=== PATIENT | male | born 1970 | race Caucasian/White ===

== ENCOUNTER 2020-05-23 19:41 | Emergency (ER) | payer OTHER ==
[~2020-05-23] VITALS: Ht 172.7 cm; Wt 102.1 kg
[2020-05-23 20:07] VITALS: BP 159/91
[2020-05-23] MEDS ORDERED: FUL-GLO OP ONE (20:47)
[2020-05-23] MEDS ORDERED: TOBRAMYCIN-DEXAMETH OPHTH SUSP ONE (20:58)
[2020-05-23] MEDS: TOBREX BOTH EYES STA (21:01)
--- NOTE | 2020-05-23 21:02 | ER.PDOC ---
General Chief Complaint: Eye Problems Stated Complaint: SWOLLEN RIGHT EYE Time seen by MD: 20:59 Source: patient Exam Limitations: no limitations History of Present Illness Initial Comments Right eye pain and tearing since this morning. Patient wears contacts. No injury. Timing/Duration: gradual Associated Symptoms: burning, itching, redness Location: right eye Severity: moderate Context: wearing contacts Allergies: Coded Allergies: Penicillins (Verified Allergy, Severe, RASH, 05/23/20) Uncoded Allergies: SULFA (Allergy, Severe, RASH, 05/23/20) Past Medical History Medical History: high cholesterol, thyroid disease Surgical History: no surgical history Social History Alcohol Use: occassionally Drug Use: none Constitutional: no symptoms reported Eyes: see HPI Mouth: no symptoms reported Throat: no symptoms reported Respiratory: no symptoms reported Cardiovascular: no symptoms reported Gastrointestinal: no symptoms reported Musculoskeletal: no symptoms reported All Other Systems: Reviewed and Negative Physical Exam General Appearance: alert, no distress Eyelid: nml inspection Conjunctiva/Sclera: (R) injected Corneas: nml inspection, exam w/flurescein (R) EOM's: intact, no nystagmus Pupils: PERRL, nml accommodation Skin Exam: Normal Color, Warm/Dry Neck/Back: nml inspection, painless ROM Resp/CVS: no resp distress, lungs clear, heart sounds nml, reg. rate & rhythm Abdomen: non-tender, no organomegaly NEURO/PSYCH: oriented X3, mood/effect nml Results/Orders Results/Orders Orders - KIM HURST MD Fluorescein Sodium (Ful-Valentine) (05/23/20 20:47) Tobramycin (Tobrex) (05/23/20 20:57) Vital Signs Date Time Temp Pulse Resp B/P (MAP) Pulse Ox O2 Delivery O2 Flow Rate FiO2 05/23/20 20:07 97.9 76 16 98 05/23/20 20:07 97.9 76 16 05/23/20 20:07 97.9 76 16 159/91 (113) 98 Departure Time of Disposition: 21:01 Disposition: 01 HOME, SELF-CARE Impression: Primary Impression: Keratitis Additional Impression: Conjunctivitis Condition: Stable Referrals: PCP,UNKNOWN (PCP) PRIMARY CARE PROVIDER Additional Instructions: Tobramycin gtt, use as directed F/U with Eye Doctor tomorrow Return to ED if any concerns or worsening Duration or Time Spent with Pa: 20 min Problem Qualifiers Additional Impression: Conjunctivitis Conjunctivitis type: unspecified Laterality: right Qualified Codes: H10.9 - Unspecified conjunctivitis ARIS,KIM Martines MD May 23, 2020 21:02
== END 2020-05-23 21:08 | disposition home or self-care (01) ==
LOC: ER 19:41
DX: H16.9 Unspecified keratitis (principal); H10.9 Unspecified conjunctivitis; E78.00 Pure hypercholesterolemia, unspecified; Z88.0 Allergy status to penicillin; Z88.5 Allergy status to narcotic agent; Z88.2 Allergy status to sulfonamides
CPT/HCPCS: 99283